=== PATIENT | female | born 1955 | race Caucasian/White ===

== ENCOUNTER 2017-09-17 23:02 | Emergency (ER) | payer BC ==
--- NOTE | 2017-09-17 23:24 | EDM.PDOC ---
ED HPI GENERAL MEDICAL PROBLEM - General Chief Complaint: ENT Problem Stated Complaint: NOSE BLEED Time Seen by Provider: 09/17/17 23:13 - History of Present Illness INITIAL COMMENTS - FREE TEXT/NARRATIVE: HISTORY AND PHYSICAL: History of present illness: Patient 61-year-old female presented concern of left-sided epistaxis since approximately 5 PM she denies trauma she is on Plavix and aspirin she denies any other concern. Review of systems: As per history of present illness and below otherwise all systems reviewed and negative. Past medical history: As per history of present illness and as reviewed below otherwise noncontributory. Surgical history: As per history of present illness and as reviewed below otherwise noncontributory. Social history: No reported history of drug or alcohol abuse. Family history: As per history of present illness and as reviewed below otherwise noncontributory. Physical exam: HEENT: Atraumatic, normocephalic, pupils reactive, negative for conjunctival pallor or scleral icterus, mucous membranes moist, throat clear, neck supple, nontender, trachea midline. Patient is active bleeding with large clot in her left nares Lungs: Clear to auscultation, breath sounds equal bilaterally, chest nontender. Heart: S1S2, regular, negative for clicks, rubs, or JVD. Abdomen: Soft, nondistended, nontender. Negative for masses or hepatosplenomegaly. Negative for costovertebral tenderness. Pelvis: Stable nontender. Genitourinary: Deferred. Rectal: Deferred. Extremities: Atraumatic, negative for cords or calf pain. Neurovascular unremarkable. Neuro: Awake, alert, oriented. Cranial nerves II through XII unremarkable. Cerebellum unremarkable. Motor and sensory unremarkable throughout. Exam nonfocal. Diagnostics: None Therapeutics: Patient's clot was cleared via blowing status post patient had a Rhino Rocket placed 4.5 cm in her left nares this was inflated mustache dressing was applied patient has good hemostasis with no evidence of posterior bleeding and tolerated procedure well Impression: #1 left sided epistaxis status post Rhino Rocket placement Definitive disposition and diagnosis as appropriate pending reevaluation and review of above. - Related Data Allergies Allergy/AdvReac Type Severity Reaction Status Date / Time codeine Allergy Hives Verified 09/17/17 23:15 meperidine HCl [From Demerol] Allergy Hives Verified 09/17/17 23:15 morphine Allergy Other Verified 09/17/17 23:15 Home Meds: Home Meds Aspirin 324 mg PO DAILY 07/16/15 [History] Clopidogrel [Plavix] 75 mg PO DAILY 07/16/15 [History] Forskolin 125mg 250 mg PO DAILY 07/16/15 [History] Losartan [Cozaar] 100 mg PO DAILY 07/16/15 [History] Nitroglycerin 0.4 mg SL ASDIRECTED PRN 07/16/15 [History] Past Medical History - Past Surgical History Other HEENT Surgeries/Procedures: multiple ear surgeries Other Cardiovascular Surgeries/Procedures: maker stent Social & Family History - Tobacco Use Smoking Status *Q: Current Every Day Smoker Second Hand Smoke Exposure: No - Recreational Drug Use Recreational Drug Use: No ED ROS GENERAL - Review of Systems Review Of Systems: ROS reveals no pertinent complaints other than HPI. ED EXAM, GENERAL - Physical Exam Exam: See Below (See dictation) Course - Vital Signs Last Recorded V/S: Last Vital Signs Temp 36.9 C 09/17/17 23:02 Pulse 95 09/17/17 23:02 Resp 18 09/17/17 23:02 BP 171/110 H 09/17/17 23:02 Pulse Ox 96 09/17/17 23:02 Departure - Departure Time of Disposition: 23:23 Disposition: Home, Self-Care 01 Condition: Good Clinical Impression: Epistaxis - Discharge Information Referrals: PCP,None [Primary Care Provider] - Additional Instructions: The following information is given to patients seen in the emergency department who are being discharged to home. This information is to outline your options for follow-up care. We provide all patients seen in our emergency department with a follow-up referral. The need for follow-up, as well as the timing and circumstances, are variable depending upon the specifics of your emergency department visit. If you don't have a primary care physician on staff, we will provide you with a referral. We always advise you to contact your personal physician following an emergency department visit to inform them of the circumstance of the visit and for follow-up with them and/or the need for any referrals to a consulting specialist. The emergency department will also refer you to a specialist when appropriate. This referral assures that you have the opportunity for followup care with a specialist. All of these measure are taken in an effort to provide you with optimal care, which includes your followup. Under all circumstances we always encourage you to contact your private physician who remains a resource for coordinating your care. When calling for followup care, please make the office aware that this follow-up is from your recent emergency room visit. If for any reason you are refused follow-up, please contact the [facility] emergency department at and asked to speak to the emergency department charge nurse. Follow-up emergency department 24-48 hours for Rhino Rocket removal Augmentin as prescribed follow-up primary medical doctor as discussed return as needed as discussed
[2017-09-18 00:53] VITALS: BP 180/117
== END 2017-09-17 23:49 | disposition home or self-care (01) ==
LOC: MW.ED 23:02
DX: R04.0 Epistaxis (principal); F17.200 Nicotine dependence, unspecified, uncomplicated; Z88.5 Allergy status to narcotic agent; Z88.8 Allergy status to other drugs, medicaments and biological substances; Z79.82 Long term (current) use of aspirin; Z79.899 Other long term (current) drug therapy
CPT/HCPCS: 30903; 99282; 99283

== ENCOUNTER 2017-09-18 23:03 | Emergency (ER) | payer BC ==
--- NOTE | 2017-09-18 23:27 | EDM.PDOC ---
ED HPI GENERAL MEDICAL PROBLEM - General Chief Complaint: General Stated Complaint: REMOVAL NOSE BLEED TOOL Time Seen by Provider: 09/18/17 23:26 Source of Information: Reports: Patient - History of Present Illness INITIAL COMMENTS - FREE TEXT/NARRATIVE: HISTORY AND PHYSICAL: History of present illness: [Patient presents for removal of a Rhino Rocket which was placed last night here in the emergency room No fever nausea vomiting chills sweats no chest pain shortness breath headache dizziness or palpitation no bowel or urine symptoms ] Review of systems: As per history of present illness and below otherwise all systems reviewed and negative. Past medical history: As per history of present illness and as reviewed below otherwise noncontributory. Surgical history: As per history of present illness and as reviewed below otherwise noncontributory. Social history: No reported history of drug or alcohol abuse. Family history: As per history of present illness and as reviewed below otherwise noncontributory. Physical exam: HEENT: Atraumatic, normocephalic, pupils reactive, negative for conjunctival pallor or scleral icterus, mucous membranes moist, throat clear, neck supple, nontender, trachea midline. Nares are patent no further bleeding Lungs: Clear to auscultation, breath sounds equal bilaterally, chest nontender. Heart: S1S2, regular, negative for clicks, rubs, or JVD. Abdomen: Soft, nondistended, nontender. Negative for masses or hepatosplenomegaly. Negative for costovertebral tenderness. Pelvis: Stable nontender. Genitourinary: Deferred. Rectal: Deferred. Extremities: Atraumatic, negative for cords or calf pain. Neurovascular unremarkable. Neuro: Awake, alert, oriented. Cranial nerves II through XII unremarkable. Cerebellum unremarkable. Motor and sensory unremarkable throughout. Exam nonfocal. Diagnostics: [Clinical] Therapeutics: [Patient observed for 20 minutes for rebleed Rhino Rocket removed without complication or complaint from left there ] Impression: [Epistaxis resolved] Definitive disposition and diagnosis as appropriate pending reevaluation and review of above. - Related Data Allergies Allergy/AdvReac Type Severity Reaction Status Date / Time codeine Allergy Hives Verified 09/17/17 23:15 meperidine HCl [From Demerol] Allergy Hives Verified 09/17/17 23:15 morphine Allergy Other Verified 09/17/17 23:15 Home Meds: Home Meds Aspirin 324 mg PO DAILY 11/15/15 [History] Clopidogrel [Plavix] 75 mg PO DAILY 07/16/15 [History] Forskolin 125mg 250 mg PO DAILY 07/16/15 [History] Losartan [Cozaar] 100 mg PO DAILY 07/16/15 [History] Nitroglycerin 0.4 mg SL ASDIRECTED PRN 07/16/15 [History] Past Medical History - Past Health History Medical/Surgical History: Denies Medical/Surgical History Cardiovascular History: Reports: Hypertension Hematologic History: Reports: Anticoagulation Therapy - Past Surgical History Other HEENT Surgeries/Procedures: multiple ear surgeries Other Cardiovascular Surgeries/Procedures: maker stent Social & Family History - Family History Family Medical History: Noncontributory - Tobacco Use Smoking Status *Q: Current Every Day Smoker Years of Tobacco use: 40 Packs/Tins Daily: 1 Second Hand Smoke Exposure: No - Recreational Drug Use Recreational Drug Use: No ED ROS GENERAL - Review of Systems Review Of Systems: ROS reveals no pertinent complaints other than HPI. ED EXAM, GENERAL - Physical Exam Exam: See Below Course - Vital Signs Last Recorded V/S: Last Vital Signs Temp 97 F 09/18/17 23:03 Pulse 88 09/18/17 23:03 Resp 18 09/18/17 23:03 BP 178/91 H 09/18/17 23:03 Pulse Ox Departure - Departure Time of Disposition: 23:50 Disposition: Home, Self-Care 01 Condition: Good Clinical Impression: Epistaxis - Discharge Information Referrals: PCP,None [Primary Care Provider] - Forms: ED Department Discharge Additional Instructions: The following information is given to patients seen in the emergency department who are being discharged to home. This information is to outline your options for follow-up care. We provide all patients seen in our emergency department with a follow-up referral. The need for follow-up, as well as the timing and circumstances, are variable depending upon the specifics of your emergency department visit. If you don't have a primary care physician on staff, we will provide you with a referral. We always advise you to contact your personal physician following an emergency department visit to inform them of the circumstance of the visit and for follow-up with them and/or the need for any referrals to a consulting specialist. The emergency department will also refer you to a specialist when appropriate. This referral assures that you have the opportunity for follow-up care with a specialist. All of these measure are taken in an effort to provide you with optimal care, which includes your follow-up. Under all circumstances we always encourage you to contact your private physician who remains a resource for coordinating your care. When calling for follow-up care, please make the office aware that this follow-up is from your recent emergency room visit. If for any reason you are refused follow-up, please contact the [facility] emergency department at and asked to speak to the emergency department charge nurse.
[2017-09-19 00:18] VITALS: BP 169/79
== END 2017-09-19 00:14 | disposition home or self-care (01) ==
LOC: MW.ED 23:03
DX: R04.0 Epistaxis (principal); I10 Essential (primary) hypertension; Z79.01 Long term (current) use of anticoagulants; F17.210 Nicotine dependence, cigarettes, uncomplicated; Z79.82 Long term (current) use of aspirin; Z79.02 Long term (current) use of antithrombotics/antiplatelets; Z79.899 Other long term (current) drug therapy; Z88.5 Allergy status to narcotic agent
CPT/HCPCS: 99282

== ENCOUNTER 2022-06-22 13:12 | Emergency (ER) | payer MEDICARE, BC ==
[2022-06-22] MEDS ORDERED: Nitroglycerin 0.4 MG Tab.SL SL PRN (13:45)
[2022-06-22] MEDS ORDERED: Aspirin 81 MG Tab.Chew PO SCH (13:45)
[2022-06-22 15:22] LABS: CARBON DIOXIDE,CO2 27.3 mmol/L (21.0-32.0)
[2022-06-22] MEDS ORDERED: methylPREDNISolone Sod Succ 1,000 MG in Sodium Chloride 0.9% 16 ML IV ONE (15:56)
[2022-06-22] MEDS ORDERED: Albuterol/Ipratropium 3.0-0.5 MG/3 ML Neb Soln NEB ONE (15:56)
[2022-06-22] MEDS ORDERED: Famotidine 20 MG/2 ML SDV IVPUSH ONE (15:56)
[2022-06-22] MEDS ORDERED: methylPREDNISolone Sodium Succinate 40 MG/1 ML SDV IVPUSH ONE (16:10)
[2022-06-22 19:17] VITALS: BP 157/88; PULSE 84
== END 2022-06-22 19:07 | disposition home or self-care (01) ==
LOC: MW.ED 13:12
DX: R07.9 Chest pain, unspecified (principal); I10 Essential (primary) hypertension; I25.2 Old myocardial infarction; Z88.5 Allergy status to narcotic agent; Z88.8 Allergy status to other drugs, medicaments and biological substances; Z88.6 Allergy status to analgesic agent; Z20.822 Contact with and (suspected) exposure to COVID-19; Z79.82 Long term (current) use of aspirin; Z79.899 Other long term (current) drug therapy
CPT/HCPCS: 36415; 71045; 80053; 83880; 84484; 85025; 93005; 99285; A9270; U0002; 93010; J3490; J7620-GY